=== PATIENT | female | born 1955 | race Asian ===

== ENCOUNTER 2023-03-02 15:30 | Outpatient (REF) | payer OTHER, SELFPAY ==
--- NOTE | ~2023-03-02 | XR_ITS ---
EXAMINATION: XR HIP, LEFT CLINICAL INFORMATION: Left hip pain COMPARISON: None available. TECHNIQUE: Two views of the left hip. AP view of the pelvis FINDINGS: The bones are intact. No fracture. Alignment is anatomic. There is mild narrowing of the superior lateral aspect of the cartilage space of the hips with associated small inferior marginal osteophytes on the left. Subchondral sclerosis is seen in the superior-lateral aspect of each acetabulum. The sacroiliac joints and pubic symphysis are within normal limits. XR/XR hip LT w [id number] IMPRESSION: Mild osteoarthritis of the hips.
--- NOTE | ~2023-03-02 | XR_ITS ---
EXAMINATION: XR KNEE, RIGHT CLINICAL INFORMATION: Right knee pain COMPARISON: None available. TECHNIQUE: Four views of the right knee. FINDINGS: The bones are intact. No fracture or joint effusion. Mild lateral patellar tilt with minimal narrowing of the patellofemoral joint compartment. No abnormal soft tissue calcification. XR/XR knee RT 3V IMPRESSION: Mild lateral patellar tilt with minimal narrowing of the patellofemoral joint compartment.
== END 2023-03-02 15:31 | disposition home or self-care (01) ==
LOC: HO.XRAY 15:30
PROVIDERS: Visit Provider Physical Medicine & Rehabilitation
DX: M25.552 Pain in left hip (principal); M25.561 Pain in right knee
CPT/HCPCS: 73502; 73562

== ENCOUNTER 2023-03-03 08:07 | Outpatient (REF) | payer OTHER, SELFPAY ==
--- NOTE | ~2023-03-03 | MM_ITS ---
EXAMINATION: BONE DENSITOMETRY CLINICAL INDICATION: Osteoporosis. COMPARISON: None (current study represents initial baseline exam). TECHNIQUE: Using a [employer] DXA System (software version: 13.1) manufactured by [employer], dual-energy x-ray absorptiometry was performed of the lumbar spine and left hip. The images are of good technical quality. Summary results are attached. FINDINGS: AP SPINE L1-L4: BMD 0.838 g/cm2, Z-score -1.4, T-score -2.8, osteoporosis. LEFT FEMUR, NECK: BMD 0.866 g/cm2, Z-score 0.1, T-score -1.2, osteopenia. LEFT FEMUR, TOTAL: BMD 0.900 g/cm2, Z-score 0.3, T-score -0.9, normal. IDENTIFIED RISK FACTORS: Menopause. HISTORY OF FRACTURE: None listed. MEDICATIONS: None listed. MM/XR DEXA axial skeleton IMPRESSION: 1. DIAGNOSIS: Osteoporosis based on the lowest T-score value of -2.8 in the lumbar spine applying World Health Organization criteria. 2. 10-YEAR FRACTURE RISK PREDICTION, FRAX: According to the guidelines, FRAX calculation should only be performed on patients in the osteopenia bone density category. Therefore, FRAX was not performed on this patient. 3. Treatment Recommendations: NOF guidelines recommend consideration for treatment in postmenopausal women and men age 50 and older presenting with the following: -A hip or vertebral (clinical or morphometric) fracture. -T-score less than or equal to -2.5 at the femoral neck or spine after appropriate evaluation to exclude secondary causes. -Low bone mass at the hip or spine and a 10-year fracture probability by FRAX of greater than or equal to 3% for hip fracture or greater than or equal to 20% for major osteoporotic fracture based on the [place] adapted WHO algorithm. 4. Other Recommendations: All treatment decisions require clinical judgment and consideration of individual patient factors, including patient preferences, comorbidities, previous drug use, risk factors not captured in the FRAX model (e.g. frailty, falls, vitamin D deficiency, increased bone turnover, interval significant decline in bone density) and possible under or overestimation of fracture risk by FRAX. Additional medical evaluation for secondary cause of low bone mineral density may be appropriate. FUTURE SCAN RECOMMENDATION: People with diagnosed cases of osteoporosis or at high risk for fracture should have regular bone mineral density tests. For patients eligible for Medicare, routine testing is allowed once every 2 years. The testing frequency can be increased to one year for patients who have rapidly progressing disease, those who are receiving or discontinuing medical therapy to restore bone mass, or have additional risk factors.
== END 2023-03-03 08:08 | disposition home or self-care (01) ==
LOC: HO.MAMMO 08:07
PROVIDERS: Visit Provider Nurse Practitioner Adult Health
DX: Z13.820 Encounter for screening for osteoporosis (principal); Z78.0 Asymptomatic menopausal state; M81.0 Age-related osteoporosis without current pathological fracture
CPT/HCPCS: 77080

== ENCOUNTER 2025-03-06 09:37 | Outpatient (REF) | payer OTHER, SELFPAY ==
--- NOTE | ~2025-03-06 | MM_ITS ---
EXAMINATION: DXA BONE DENSITY AXIAL HISTORY: M81.0 AGE RELATED OSTEOPOROSIS TECHNIQUE: [employer] Dual energy absorptiometry (DEXA) of the lumbar spine, total left hip, and femoral neck was performed. COMPARISON: Comparison is made with the prior examination dated 03/03/2023. FINDINGS: The bone mineral density of the lumbar spine is 0.843, corresponding to a T-score of -2.8, and a Z-score of -1.4. This is indicative of osteoporosis. This represents a BMD change of 0.6% compared to the prior exam. This is not statistically significant. The bone mineral density of the left total hip is 0.904, corresponding to a T-score of -0.8, and a Z-score of 0.4. This is indicative of normal bone mineral density. This represents a BMD change of 0.4% compared to the prior exam. This is not statistically significant. The bone mineral density of the left femoral neck is 0.899, corresponding to a T-score of -1.0, and a Z-score of 0.4. This is indicative of normal bone mineral density. This represents a BMD change of 3.8% compared to the prior exam. MM/XR DEXA axial skeleton IMPRESSION: Based on bone mineral density, and according to World Health Organization (WHO) criteria, the diagnosis is consistent with osteoporosis. All bone density values are in grams per centimeter squared (g/cm2). Statistically, 68% of repeat scans fall within 1 SD (+/- 0.010 g/cm2 for AP spine L1-L4) and 1 SD (+/- 0.012 g/cm2 for femur total) FRAX is a trademark of the [employer]'s [employer] Metabolic Bone Disease, a World Health Organization (WHO) Collaborating Center. Electronically signed by: Victor Manuel Maguire MD 03/06/2025 01:31 PM EDT
--- OUTSIDE RECORDS SUMMARY | 2025-03-06 10:33 | XMS_ITS | Data Portability ---
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 Apply by twice a day to AFFECTED AREA 2012 active Not Available Not Available Not Avai lable alendrona te 70 mg tablet TAKE 1 TAB ONCE WEEKLY ON AN EMPTY STOMACH 1ST THING IN THE MORNING WITH 8 OZ. OF WATER REMAIN UP 02/16 completed not taking anymore Not Available Not Available Not Available prochlorp erazine maleate 10 mg tablet 10/11 completed Not Available Not Available Not Available omeprazol e 40 mg capsule,d elayed release TAKE 1 CAPSULE BY MOUTH EVERY DAY 03/10 completed Not Available Not Available Not Available acetamino phen 500 mg tablet TAKE 2 TABLETS 3 TIMES A DAY BY ORAL ROUTE NEEDED. 02/16 completed Not Available Not Available Not Available triamcino lone acetonide 0.1 % topical cream APPLY A THIN LAYER TO THE AFFECTED AREA(S) BY TOPICAL ROUTE 2 TIMES PER DAY 03/15 completed Not Available Not Available Not Available amoxicill in 500 mg tablet TAKE 1 TABLET BY MOUTH EVERY 6 HOURS UNTIL GONE 02/16 completed Not Available Not Available Not Available Vagifem 25 mcg vaginal tablet Insert 1 tablet (25 mcg) by vaginal route qhs x 2 weeks and then 2x week thereaft er 2009 active Not Available Not Available Not Avai lable prednisol one acetate 1 % eye drops,saturnino pension INSTILL 1 DROP INTO BOTH EYES 4 TIMES A DAY 02/16 completed Not Available Not Available Not Available cephalexi n 500 mg capsule TAKE 1 CAPSULE BY MOUTH EVERY 6 HOURS FOR 7 DAYS 03/10 completed Not Available Not Available Not Available ferrous sulfate 325 mg (65 mg iron) tablet 2007 active Take 1.00 tabs daily Not Available Not Available Not Available lisinopri l 10 mg tablet TAKE 1 TABLET BY MOUTH EVERY DAY DIRECTED active Pt states as needed Not Available Not Available Not Available ibuprofen 400 mg tablet TAKE 1 TABLET BY MOUTH THREE TIMES A DAY FOR 5 DAYS 03/20 completed PRN Not Available Not Available Not Available Advair Diskus 250 mcg-50 mcg/dose powder for inhalatio n INHALE 1 PUFF TWICE DAILY 04/25 completed Not Available Not Available Not Available betametha sone dipropion ate 0.05 % topical cream APPLY BY TOPICAL ROUTE TO AFFECTED AREAS TWICE A DAY DIRECTED FOR 2 WEEKS active PRN Not Available Not Available No t Available docusate sodium 100 mg capsule TAKE 1 CAPSULE BY MOUTH EVERY DAY 03/10 completed Not Available Not Available Not Available gabapenti n 300 mg capsule TAKE 1 CAPSULE BY MOUTH AT BEDTIME 03/10 completed Not Available Not Available Not Available hydrocodo ne 5 mg-acetam inophen 500 mg tablet active Not Available Not Available Not Available hydrochlo rothiazid e 25 mg tablet TAKE 1 TABLET EVERY DAY BY ORAL ROUTE IN THE MORNING. 01/01 completed 11/28/24 AG Not taking every day Not Available Not Available Not Available methylpre dnisolone 4 mg tablets in a dose pack Take 1 dose pk by oral route. 02/16 completed Not Available Not Available Not Available doxycycli ne hyclate 20 mg tablet TAKE 1 TABLET BY MOUTH EVERY 12 HOURS 02/16 completed Not Available Not Available Not Available etodolac 500 mg tablet TAKE 1 TABLET BY MOUTH TWICE A DAY active PRN - Currentl y taking once/day 11/28/24 AG Not Available Not Available Not Available clotrimaz ole 1 % topical cream Apply 1 g twice a day by topical route. active Not Available Not Available No t Available naproxen 500 mg tablet TAKE 1 TABLET BY MOUTH TWICE A DAY DIRECTED 06/12 completed Not Available Not Available Not Available fluocinol one 0.025 % topical cream Apply by topical route ance nightly for three weeks, then as needed 06/11 completed Not Available Not Available Not Available ciclopiro x 0.77 % topical cream APPLY TO AFFECTED AREA TWICE A DAY IN THE MORNING AND IN THE EVENING 02/16 completed Not Available Not Available Not Available cyclobenz aprine 5 mg tablet TAKE 1 TABLET BY MOUTH EVERY DAY AT BEDTIME FOR 5 DAYS 03/10 completed Not Available Not Available Not Available Restasis 0.05 % eye drops in a dropperet te INSTILL 1 DROP INTO BOTH EYES TWICE A DAY 03/15 completed Not Available Not Available Not Available omega-3 acid ethyl esters 1 gram capsule 02/16 completed Not Available Not Available Not Available ibandrona te 150 mg tablet TAKE 1 TABLET BY MOUTH ONCE A MONTH 05/06 completed Not Available Not Available Not Available chlorhexi dine gluconate 0.12 % mouthwash FILL CAP(15ML ) SWISH IN MOUTH FOR 30 SECONDS THEN SPIT OUT. USE AFTER BREAKFAS T AND BEFORE BEDTIME 02/16 completed Not Available Not Available Not Available magnesium active Not Available Not Lucy ilable Not Available Vitamin C active Not Available Not Lucy ilable Not Available zinc daily 02/16 completed Not Available Not Available Not Available Fish Oil 02/16 completed not taking 07/30/19- tt Not Available Not Available Not Available Calcium 600 1-2 times daily 02/16 completed Not Available Not Available Not Available Benadryl active qhs Not Available Not Avai lable Not Available Vitamin D active Not Available Not Lucy ilable Not Available Tylenol PRN 02/16 completed Not Available Not Available Not Available coenzyme Q10 10/15 completed prn Not Available Not Available Not Available Vitamin D3 Taking 5000 units daily. 02/16 completed Not Available Not Available Not Available multivita min 02/28 completed Not Available Not Available Not Available sodium fluoride 1.1 %-potassi um nitrate 5 % dental paste USE 2-3X/JULIAN LY, SPIT OUT EXCESS. DO NOT RINSE WITH WATER. NO EATING OR DRINKING FOR 45 MIN AFTER 02/16 completed Not Available Not Available Not Available omega-3 fatty acids-fis h oil 300 mg-1,000 mg capsule TAKE 1 CAPSULE BY MOUTH TWICE A DAY 02/16 completed Not Available Not Available Not Available peg 3350-elec trolytes 236 gram-22.7 4 gram-6.74 gram-5.86 gram solution 10/11 completed Not Available Not Available Not Available Vitamin D3 50 mcg (2,000 unit) tablet TAKE 2 TABLETS BY MOUTH EVERY DAY 02/16 completed Not Available Not Available Not Available Fish Oil 100 mg-160 mg-1,000 mg capsule Take 1 capsule twice a day by oral route for 90 days. 02/16 completed Not Available Not Available Not Available Multi Vitamin active Not Available Not Available Not Available Fluzone Quad (PF) 60 mcg (15 mcg x 4)/0.5 mL IM syringe PHARMACY ADMINIST ERED 09/02 completed Not Available Not Available Not Available Vitals Date Recorded Body height Body mass index (BMI) Body weight Heart rate Systolic blood pressure Diastolic blood pressure Provider Name and Address Organization Details Last Updated DateTime 5 161.29 cm 27.9 kg/m2 16398.7 8 g 64 /min 164 mm[Hg] 97 mm[Hg] Shanae Stephenson LPN [facility] 5 09:29:01 Date Recorded Body height Body mass index (BMI) Body weight Oxygen saturation Oxygen saturation in Arterial blood by Pulse oximetry Heart rate Systolic blood pressure Diastolic blood pressure Provider Name and Address Organization Details Last Updated DateTime 5 161.29 cm 28.1 kg/m2 36670.3 7 g 97 % 97 % 68 /min 130 mm[Hg] 60 mm[Hg] Fox cobb MA [facility] 5 08:25:21 Date Recorded Oxygen saturation Oxygen saturation in Arterial blood by Pulse oximetry Heart rate Body weight Body mass index (BMI) Body height Systolic blood pressure Diastolic blood pressure Provider Name and Address Organization Details Last Updated DateTime 4 99 % 99 % 69 /min 14168.1 9 g 27.7 kg/m2 161.29 cm 139 mm[Hg] 84 mm[Hg] FRANK Nava [facility] 4 14:57:53 Date Recorded Body height Heart rate Oxygen saturation Oxygen saturation in Arterial blood by Pulse oximetry Systolic blood pressure Diastolic blood pressure Provider Name and Address Organization Details Last Updated DateTime 4 161.29 cm 69 /min 97 % 97 % 116 mm[Hg] 70 mm[Hg] Edwin Mora [facility] 4 13:48:42 Date Recorded Body height Heart rate Systolic blood pressure Diastolic blood pressure Provider Name and Address Organization Details Last Updated DateTime 08/13/2024 161.29 cm 92 /min 121 mm[Hg] 75 mm[Hg] Nlela Herman [facility] 08/13/2024 14:01:59 Social History Question Answer Notes LastModified by Organizat ion Details LastModified Time Tobacco Smoking Status Never Smoker 01/01/25 SHERLNY Medina [place] [facility] 01/01/2025 08:22:53 Do You Have An Advance Directive? No Information not available 08/12/2011 Do You Wear A Helmet When Biking? Yes Information not available 02/16/2016 What Is Your Level Of Caffeine Consumption? Occasional Information not available 02/16/2016 How Much Tobacco Do You Chew? None Information not available 12/09/2014 What Type Of Diet Are You Following? REGULAR Information not available 02/16/2016 Which Illicit Or Recreational Drugs Have You Used? Raisa lawson Information not available 09/23/2015 How Many Days In The Past Year Have You Had A Heavy Drinking Consumption (4+ Female, 5+ Male)? 0 Information not available 02/27/2019 Are There Any Guns Present In Your Home? No Information not available 02/16/2016 Live Alone Or With Others? With Others Information not available 06/05/2012 Patient Has Health Care Proxy Signed And In Chart No Proxy Invalid - Agent Cannot Be Witness. 11/28/24 AG Given [email or web address] Information not available 06/05/2012 MOLST Form Signed And In Chart 04/25/2024 2nd Page Of MOLST Is Not Valid-not Signed By Patient [email or web address] Information not available 04/26/2024 Marital Status Is Taras Donohue Information not available 06/05/2012 Mosquito Repellent Used Routinely Yes Information not available 02/16/2016 What Was The Date Of Your Most Recent Tobacco Screening? 01/01/2025 01/01/25 SHERLYN Information not available 01/01/2025 How Many Children Do You Have? 1 Daughter Information not available 06/05/2012 Seat Belts Used Routinely Yes Information not available 02/16/2016 Smoke Alarm In Home Yes Information not available 02/16/2016 How Much Tobacco Do You Smoke? No Information not available 10/15/2019 General Stress Level Low [email or web address] Information not available 07/30/2019 Do You Use Sunscreen Routinely? Yes Information not available 02/16/2016 How Many Years Have You Smoked Tobacco? 0 Information not available 10/15/2019 Sex: Female Functional Status Question Answer Note LastModified by Organizat ion Details LastModified Time Do you use any illicit or recreational drugs? No Information not available 11/28/2024 Do you or have you ever used any other forms of tobacco or nicotine? No Information not available 11/28/2024 What is your level of alcohol consumption? None Information not available 11/28/2024 Do you or have you ever used smokeless tobacco? 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 Never used electronic cigarettes Information not available 10/15/2019 Mental Status None recorded. Family History Relationship Description Onset Age of this Age Resolved Age Notes LastModified by Organization Details LastModified Time Mother Diabetes mellitus previo usly record ed as Diabet es renny Not available 12/29/2015 08:28:39 Notes:Father-heart disease 3 brothers and 1 sister-all healthy sister iwth osteoporisis. Medical History Condition Response eczema Y Gynecological HistoryNo gynecological history recorded. Obstetrics History GPAL:G 0 P 0 0 0 0 Immunizations Vaccine Type Date Status Note Provider Nam e and Address Organization Details Recorded Time Tdap 1 completed Not Available [facility] 10/13/2019 02:26:40 Td(adult) unspecified formulation 2 completed Not Available [facility] 10/29/2020 10:07:09 Influenza, split virus, trivalent, preservative 2 completed Not Available [facility] 10/13/2019 02:18:34 influenza, seasonal, intradermal, preservative free 3 completed Not Available [facility] 10/13/2019 02:26:05 Influenza, split virus, trivalent, PF 4 completed Not Available [facility] 10/13/2019 02:26:06 Influenza, split virus, quadrivalent, PF 5 completed Not Available [facility] 10/13/2019 02:34:15 Influenza, split virus, quadrivalent, PF 7 completed Not Available [facility] 10/13/2019 02:22:05 Influenza, split virus, quadrivalent, PF 8 completed Not Available [facility] 10/13/2019 02:25:34 Influenza, split virus, quadrivalent, PF 9 completed Not Available [facility] 10/13/2019 02:24:34 Td (adult), 5 Lf tetanus toxoid, preservative free, adsorbed 3 completed Dioni Oneal, RMA null, [facility] 02/16/2023 16:22:03 Influenza, split virus, trivalent, preservative 0 completed Not Available [facility] 10/13/2019 02:36:32 Influenza, adjuvanted, trivalent, PF 4 completed Shanae Gladu, APPLICATIONS INTERN null, [facility] 11/28/2024 09:41:15 zoster recombinant 2 completed Shanae Gladu, APPLICATIONS INTERN null, [facility] 11/28/2024 09:41:15 zoster recombinant 2 completed Shanae Gladu, APPLICATIONS INTERN null, [facility] 11/28/2024 09:41:15 Influenza, high-dose, quadrivalent, PF 2 completed [facility], [facility] 09:41:15 Influenza, adjuvanted, quadrivalent, PF 3 completed [facility] Glad[facility], [facility]/28/[facility]24 09:41:15 COVID-19, mRNA, LNP-S, PF, 30 mcg/0.3 mL dose 1 completed [facility] Gladu, [facility] 11/28/[facility]24 09:41:15 COVID-19, mRNA, LNP-S, PF, 30 mcg/0.3 mL dose 1 completed Shanae Gladu, [facility] 11/28/2024 09:41:15 COVID-19, mRNA, LNP-S, PF, 30 mcg/0.3 mL dose 1 completed Shanae Gladu, APPLICATIONS INTERN null, [facility] 11/28/2024 09:41:15 Pneumococcal conjugate PCV20, polysaccharide INH290 conjugate, adjuvant, PF 4 completed Shanae Gladu, APPLICATIONS INTERN null, [facility] 11/28/2024 09:41:15 COVID-19, mRNA, LNP-S, PF, lilly-sucrose, 30 mcg/0.3 mL 4 completed Shanae Gladu, APPLICATIONS INTERN null, [facility] 11/28/2024 09:41:15 COVID-19, mRNA, LNP-S, PF, 50 mcg/0.5 mL 3 completed Shanae Gladu, APPLICATIONS INTERN null, [facility] 11/28/2024 09:41:15 Influenza, split virus, quadrivalent, PF 0 completed Shanae Gladu, APPLICATIONS INTERN null, [facility] 11/28/2024 09:41:15 Influenza, split virus, quadrivalent, PF 1 completed Shanae Gladu, APPLICATIONS INTERN null, [facility] 11/28/2024 09:41:15 Past Encounters Encounter ID Performer Location Encounter Start Date Encounter Closed Date Diagnosis/Indication Diagnosis SNOMED-CT Code Diagnosis ICD10 Code Diagnosis Note [id number] Elza MULTANI, [facility] [place]ICE [address] [place] [address] 02/16/2002 08:09:35 10/16/2008 02:02:29 [id number] [facility] , [address] [id number] 02/23/2002 08:10:39 10/16/2008 02:02:29 [id number] [facility] ULTRASOUND [facility] , [address] [address] 02/23/2002 09:33:50 10/16/2008 02:02:29 [id number] Elza MULTANI, [facility], OFFICE [address] [place] [address] 04/18/2002 08:07:17 10/16/2008 02:02:29 [id number] [facility] - [facility] [address] [facility] [address] [place] [address] 04/18/2002 08:44:34 10/16/2008 02:02:29 [id number] Sonny Hinds MD , [facility], OFFICE [address] [place] [address] 06/12/2002 08:20:51 10/16/2008 02:02:29 [id number] Jaret Cabrera MD , [facility] OFFICE [address] [place] [address] 06/20/2002 08:10:20 10/16/2008 02:02:29 [id number] Teresa RAMIREZ , [facility], OFFICE [address] [place] [address] 04/23/2003 08:26:04 10/16/2008 02:02:29 [id number] [facility] - [facility] [address] [place] [id number] 04/23/2003 00:00:00 10/16/2008 02:02:29 [id number] [facility] , [facility] [address] [place] [address] 04/23/2003 09:12:31 10/16/2008 02:02:29 [id number] Elza MULTANI, [facility], OFFICE [address] [place] [address] 06/17/2003 16:27:37 06/17/2003 18:14:06 [id number] Elza MULTANI, [facility], OFFICE [address] [place] [address] 06/24/2003 16:26:31 06/24/2003 18:30:00 [id number] [facility] - [facility] [address] [place] [address] 06/25/2003 08:12:22 06/25/2003 11:57:34 [id number] Zenon Cervantes, OD Eye Care, [facility] [address] [facility] [place] [address] 07/18/2003 14:54:13 07/18/2003 16:37:42 [id number] [facility] , [facility] [address] [facility] [place] [address] 07/18/2003 15:20:19 07/18/2003 15:33:56 [id number] FP TREATMENT NURSE [facility], [facility], OFFICE [address] [place] [address] 11/07/2003 00:00:00 10/16/2008 02:02:29 [id number] [facility] , [facility], OFFICE [address] [place] [address] 11/07/2003 15:45:36 10/16/2008 02:02:29 [id number] Paulie Hernandez III, MD , [facility], OFFICE [address] [place] [address] 12/24/2003 14:27:20 12/25/2003 09:42:19 [id number] Teresa MULTANI, [facility], OFFICE [address] [place] [id number] 01/15/2004 15:30:33 01/15/2004 17:27:43 [id number] Teresa MULTANI, [facility], OFFICE [address] [place] [address] 09/01/2004 16:10:29 09/01/2004 16:31:56 [id number] Laila Higuera MD FP, [facility], OFFICE [address] [place] [address] 11/05/2004 16:51:49 11/09/2004 08:16:41 [id number] [facility] - [facility] [address] [place] [address] 11/05/2004 00:00:00 10/16/2008 02:02:29 [id number] Teresa MULTANI, [facility], OFFICE [address] [place] [id number] 09/30/2005 08:10:52 09/30/2005 14:53:33 [id number] [facility] - [facility] [address] [place] [address] 09/30/2005 08:57:18 09/30/2005 08:57:40 [id number] Jeremi MULTANI, [facility], OFFICE [address] [place] [address] 10/12/2005 17:22:48 10/13/2005 08:25:11 [id number] [facility] - [facility] [address] [place] [id number] 10/12/2005 00:00:00 10/16/2008 02:02:29 [id number] [facility] , [facility] [address] [place], [place] [address] 10/14/2005 07:22:17 10/14/2005 14:10:29 [id number] Jeremi MULTANI, [facility], OFFICE [address] [place] [address] 11/11/2005 09:06:18 11/11/2005 13:42:36 [id number] Teresa MULTANI, [facility], OFFICE [address] [place] [address] 01/27/2006 07:57:13 01/27/2006 15:18:58 [id number] Teresa MULTANI, [facility] OFFICE [address] [place] [address] 02/25/2006 08:06:40 02/25/2006 09:18:20 [id number] Floyd Phillips , [facility], OFFICE [address] [place] [id number] 04/18/2006 07:58:10 04/18/2006 17:43:16 [id number] [facility] - [address] [place] [address] 04/18/2006 00:00:00 10/16/2008 02:02:29 [id number] Robb Salazar, [facility] OFFICE [address] [place] [address] 05/06/2006 08:03:25 05/09/2006 09:31:00 [id number] [facility] - [address] [place] [address] 05/06/2006 00:00:00 10/16/2008 02:02:29 [id number] [facility] - [address] [place] [address] 05/06/2006 11:53:44 05/06/2006 11:53:59 [id number] EMELIA Simpson, [facility], OFFICE [address] [place] [address] [place] [address] 05/18/2006 08:17:48 05/18/2006 15:11:38 [id number] [facility] - [address] [place] [id number] 05/18/2006 00:00:00 10/16/2008 02:02:29 [id number] EMELIA Simpson, [facility], OFFICE [address] [place] [address] [place] [address] 05/27/2006 10:20:47 05/27/2006 14:12:17 [id number] [facility] - [address] [place] [address] 05/27/2006 00:00:00 10/16/2008 02:02:29 [id number] EMELIA Simpson, [facility] OFFICE [address] [place] [address] 06/01/2006 08:26:16 06/01/2006 10:44:14 [id number] [facility] - [address] [place] [address] 05/01/2006 00:00:00 10/16/2008 02:02:29 [id number] Anita Lopez NP , [facility] OFFICE [address] [place] [address] 08/29/2006 08:24:11 08/29/2006 10:42:34 [id number] Robb Salazar , [facility], OFFICE [address] [place] [place] [id number] 11/01/2006 09:55:04 11/01/2006 13:59:08 [id number] [facility] - [address] [place] [id number] 11/01/2006 00:00:00 10/16/2008 02:02:29 [id number] [facility] , [address] [place] [address] 11/01/2006 09:19:43 11/02/2006 07:23:55 [id number] [facility] - [address] [place] [address] 11/01/2006 11:16:09 11/01/2006 11:16:21 [id number] Teresa RAMIREZ , [facility], OFFICE [address] [place] [address] 1 07/10/2007 09:57:38 10/16/2008 02:02:29 [id number] Elza Jacobs , [facility] [address] [place] [place] [address] 1 10/20/2007 09:31:53 10/16/2008 02:02:29 [id number] [facility] , [address] [place] [address] 1 10/20/2007 11:22:45 10/20/2007 12:19:10 [id number] [facility] - [address] [place] [address] 1 10/20/2007 00:00:00 10/16/2008 02:02:29 [id number] [facility] - [address] [place] [address] 1 10/20/2007 11:14:51 10/20/2007 11:14:59 [id number] [facility] , [address] [place] [address] 1 11/03/2007 10:57:52 11/03/2007 11:10:45 [id number] Tamela MULTANI, [facility] OFFICE [address] [place] [address] 1 01/15/2008 08:06:43 10/16/2008 02:02:29 [id number] [facility] , [address] [address] 01/15/2008 08:51:26 01/15/2008 14:39:19 [id number] Kylie Menard, PT Physical Therapy, [address] [place] [address] 01/18/2008 14:48:19 01/18/2008 14:48:46 [id number] Kylie Menard, PT Physical Therapy, [address] [place] [address] 1 02/05/2008 08:56:02 02/05/2008 08:57:10 [id number] EMELIA Fung, [facility] [place] [address] [place] [address] 1 03/07/2008 07:59:33 10/16/2008 02:02:29 [id number] [facility] - [address] [place] [address] 1 03/07/2008 08:53:12 03/07/2008 08:53:30 [id number] [facility] , [address] [place] [address] 1 03/07/2008 09:21:40 03/07/2008 10:36:46 [id number] [facility] - [address] [place] [address] 1 03/07/2008 11:33:14 03/07/2008 11:33:37 [id number] [facility] - [address] [place] [address] 1 03/07/2008 00:00:00 10/16/2008 02:02:29 [id number] EMELIA Fung, [facility] OFFICE [address] [place] [address] 1 03/14/2008 07:59:45 10/16/2008 02:02:29 [id number] EMELIA Fung, [facility] [address] [place] [address] 1 07/15/2008 08:10:22 10/16/2008 02:02:29 [id number] Jeremi Tejada NP FP, [facility] OFF[facility] [address] [place] [address] 1 01/20/2009 15:54:47 01/22/2009 10:49:22 [id number] [facility] , [facility] [address] [place] [address] 01/20/2009 17:00:43 01/21/2009 15:32:25 [id number] [facility] , [facility] [address] [place] [address] 02/09/2010 12:51:56 02/10/2010 09:30:07 [id number] Jeremi Tejada NP FP, [facility] OFF[facility] [address] [place] [address] 1 02/09/2010 13:45:49 02/09/2010 15:42:47 [id number] [facility]ONE DENSITY Radiology , [facility] [address] [facility] [place] [address] 1 03/02/2010 13:22:31 03/05/2010 13:39:58 [id number] FP TREATMENT NURSE [facility] FP, [facility] OFF[facility] [address] [place] [address] 1 08/17/2010 10:50:51 08/18/2010 08:48:14 [id number] Jeremi Tejada NP FP, [facility] [address] [place] [address] 1 03/01/2011 09:09:12 03/01/2011 14:47:06 [id number] [facility] , [facility] [address] [facility] [place], [place] [address] 03/01/2011 09:51:21 03/02/2011 09:40:48 [id number] Jeremi Tejada NP FP, [facility] OFFICE [address] [place] [address] 1 03/22/2011 09:12:29 03/22/2011 17:12:57 [id number] Paulie Hernandez III, MD FP, [facility] OFFICE [address] [place] [address] 1 02/28/2012 12:14:37 03/01/2012 09:09:43 [id number] Melissa Jasso D.O. [facility], OFFICE [address] [place] [address] 1 06/05/2012 09:39:11 06/05/2012 10:25:54 [id number] Victor Manuel Montanez MD Radiology , [facility] [address] [facility] [place] [address] 1 06/05/2012 11:28:25 06/06/2012 09:34:41 [id number] Markel Samule MD Radiology , [address] [address] 06/12/2012 12:43:46 06/15/2012 12:24:05 [id number] Melissa Jasso D.O. [facility], OFFICE [address] [place] [address] [place] [address] 1 09/25/2012 15:22:52 09/25/2012 15:56:38 [id number] Guido Haley MD Radiology , [address] [address] 12/18/2012 11:09:32 12/19/2012 09:09:01 [id number] Victor Manuel Isaac MD [facility], OFFICE [address] [place] [address] [place] [address] 1 01/01/2013 07:55:42 01/01/2013 11:29:24 [id number] Melissa Jasso D.O. [facility], OFFICE [address] [place] [address] [place] [address] 1 06/11/2013 09:31:26 06/12/2013 07:50:38 Adult health examination [id number] see Risk Assessment and Lifestyle Change Counseling section above HM: [facility] pap 06/07 with 3 yr repeat . Mammo 06/08 with 6 month repeat; scheduled today. Lipids '-wnl; james repeat toay BMD 02/02 with 2 year repeat for osteopenia ; will schedule today Colonoscop y 2005 with 10 year repeat. Tdap 05/06. Flu shot today. Counseling [id number] Screening for osteoporosis [id number] Eruption [id number] eczem a type rash on hands, foreamrs. Little improvemen t with fluocinolo n 0.025% cream. Will increase to betamethas one 0.05% cream applied bid to affected areas. Influenza vaccine needed [id number] Melissa Jasso D.O. [facility], OFFICE [address] [place] [address] 1 07/30/2013 10:31:11 07/30/2013 10:58:42 Eruption [id number] eczema type rash on hands, foreamrs. Little improvemen t with fluocinolo n 0.025% cream. Will increase to betamethas one 0.05% cream applied bid to affected areas. Osteoporosis 70367295 Di scussed results with -2.9 T score in back. Will start taking calcium 600 mg bid. Advised to begin weight bearing exercises. Encouarged yoga. Discussed importance of avoid falls. Will repeat spirometry in 2years. [id number] Melissa Jasso D.O. [facility], OFFICE [address] [place] [address] 1 08/12/2014 07:41:41 08/12/2014 08:14:20 Influenza vaccine needed [id number] 106 Low back pain 271056883 lower back strain with some sciatic involvemen t Sxs improving GIven naproxen 500 mg bid to use if sxs worsen Heat, gentle stretching exercises f/u prn Screening mammography [id number] Anita Lopez NP , [facility] OFF[facility] [address] [place] [address] 1 09/02/2014 07:39:03 09/02/2014 08:23:51 Costal chondritis 65713905 [id number] Melissa Jasso D.O. , [facility] OFFICE [address] [place] [address] 1 12/09/2014 09:41:30 12/09/2014 10:25:18 Screening for malignant neoplasm of cervix 473586119 Postmenopausal state 40044683 Adult heal th examination 798784363 see Risk Assessment and Lifestyle Change Counseling section above . HM: [facility] pap today. Mammo 08/09 with 1 year repeat. Lipids 06/08-wnl. BMD 07/08 with 2 year repeat for osteopenia . Colonoscop y 2005 with 10 year repeat. Tdap 05/06. Flu shot 08/09 Backache 530723561 Napro xen 500 mg bid Advised apply heat, gentle stretching declines PT at this time [id number] Jeremi Tejada NP , [facility] OFFICE [address] [place] [address] 1 06/18/2015 07:47:13 06/18/2015 08:13:40 Hypertriglyceridemia 572154363 Trigs 198 Discussed starting omega fish oil 2000 mg daily increase exercise Low back pain 924458519 LBP persists unclear if declined PT or insurance did not cover will refer to PSS- has seen Dr. bates in past. Influenza vaccine needed [id number] Jeremi Tejada NP FP, [facility], OFFICE [address] [place] [address] 1 09/03/2015 07:50:49 09/03/2015 08:16:58 Osteoporosis 29306097 M81.0 discussed changes in bmd for past 2 years will keep appt with on 09/23 to discuss tx options will have interprete r come with her . [id number] Bruno Bennett MD Endocrino logy, [facility] [address] [place] [address] 09/23/2015 07:57:14 09/23/2015 09:19:04 Osteoporosis 76780628 M81.0 Parking Officer present for visit. Recommend she take Ca 600 mg twice a day (600 mg in am and 600 mg in pm) Take Extra Vitamin D 1000 units daily so that taking approx 2000 units total. Rule out secondary causes of osteoporos is with TSH, Renal panel PTH and Vit D. Will also get spine film to ensure no compressio n fractures given severity of lumbar spine scores. Discussed options for therapy includin) bisphospho nates (fosamax, actonel, boniva, reclast)-s /e osteonecro sis, GI upset and difficulti es. There are both IV and oral forms available in this class. Fosamax, Actonel and Boniva are oral. IV Boniva and IV Reclast are injection. 2)Forteo-s /e osteosarco ma, injection site reaction, shifts in Ca. This is only medication capable of growing new bone. Given severity of T score in spine (-3.7 in a few of the vetebrae) is reasonable option. Monitor CMP while giving q 4 months. 3) estrogen-s /e risk for breast cancer and cardiovasc ular disease but would not recommend given that she has gone through menopause 8 years ago. 4) SERM (Evista)-s /e hot flashes and blood clots. Would not use first line in her at this time as other options would provide greater benefit. 5) Prolia-sim ilar s/e as bisphospho nates, given q 6 months in the office. Renal and magnesium monitored while giving to watch for shifts in Calcium. given translatio n needs- will follow up after testing to review results in office and go over therapies again, answer qeustions and decide therapy as time did not allow further indepth discussion of therapies. Over 1 hour spent in history, phyiscal and beginning to explain her BMD, labs and medication . ADDENDUM: Full report found in ERAD. Spine -3.5 (L1 -3.7, L2 -2.9 L3 -2.3 L4 -3.0) left neck -1.7, right neck -1.7 total mean -1.2 total left -1.0 total right -1.4 [id number] Bruno Bennett MD Endocrino logy, [address] [address] 10/27/2015 07:58:00 10/27/2015 09:17:34 Osteoporosis 15819342 M81.0 Parking Officer present for visit. Cont Ca 600 mg with Vit D 400 IU twice a day (600 mg in am and 600 mg in pm) Take Extra Vitamin D 2000 units daily so that taking approx 3000 units total daily. No secondary causes of osteoporos is with TSH, Renal panel PTH and Vit D all normal. Spine films no compressio n fracture. Jul 2015- Full report found in ERAD. Spine -3.5 (L1 -3.7, L2 -2.9 L3 -2.3 L4 -3.0) left neck -1.7, right neck -1.7 total mean -1.2 total left -1.0 total right -1.4 After discussion pt not sure what she would like to do. She is wanting to avoid injection daily with Forteo if possible. She indicates she is only drinking 2 cups of fluid daily and a cup of soup and may not be getting enough fluid. She feels this may reason for her stomach upset and she is leaning toward monthly oral boniva and working on increasing her fluid intake and seeing if she can tolerate oral medication s. Discussed s/e. Discussed directions to take medication , take on empty stomach in AM with at least 8 oz water and remain upright for atleast an hour before eating or reclining. Decided that will try oral boniva for 2 months. f/u in 2 months to see how tolerating medication . If not able to drink necessary water or tolerate medication then will change to IV form or to prolia. [id number] Bruno Bennett MD Endocrino logy, [address] [place] [address] 12/29/2015 07:52:45 12/29/2015 08:49:56 Osteoporosis 29345464 M81.0 Parking Officer present for visit- Akilah Walker Cont Ca 600 mg with Vit D 400 IU twice a day (600 mg in am and 600 mg in pm) Take Extra Vitamin D 2000 units daily so that taking approx 3000 units total daily. No secondary causes of osteoporos is with TSH, Renal panel PTH and Vit D all normal. Spine films no compressio n fracture. Jul 2015- Full report found in ERAD. Spine -3.5 (L1 -3.7, L2 -2.9 L3 -2.3 L4 -3.0) left neck -1.7, right neck -1.7 total mean -1.2 total left -1.0 total right -1.4 Doing well on boniva 150 mg once monthly with no stomach or GI upset. Reviewed Forteo vs boniva and pt wishing to continue on Boniva. F/u in December 2015 and will order BMD at that time for Jul 2017. Will decide after BMD Jul 2017 if to continue therapy or change to alternate med. Pt knows that if she develops GI upset in the interim she is to call the office and will decide if able to continue therapy. Reviewed directions to take medication , take on empty stomach in AM with at least 8 oz water and remain upright for atleast an hour before eating or reclining. [id number] Jeremi Tejada NP FP, [facility], OFFICE [address] [place] [address] 02/16/2016 09:33:46 02/16/2016 09:37:19 Osteoporosis 89626330 M81.0 on montly Bonivafoll owed by Robb Thacker Adult heal th examination 152830525 Z00.00 HM: [facility] pap 12/09/14 with 3 yr Mammo 10/11 with 1 year repeat. Lipids 06/08-wnl. BMD 08/10 with osteoporos is- seeing Robb Jacinda ness Colonoscop y 2005 with 10 year repeat. Tdap 05/06. Flu shot 08/09 Screening for malignant neoplasm of colon 876977221 Z12.11 Referral for a DIRECT booked colonoscop y. This patient is a healthy ASA Class 1 or 2 patient (only mild systemic disease), or a STABLE, well controlled insulin dependent diabetic. They do not have serious cardiac disease ie ND/angiopl asty within 1 year, symptomati c CHF; renal failure with CKD 4 or 5; take Coumadin, Plavix, Aggrenox, etc; nor take chronic narcotics. [Patients who take chronic narcotics should be referred to [facility] for a propofol procedure due to possible inability to sedate adequately with conscious sedation.] Neck pain 57717789 M54.2 R sided neck paindiscus sed PT- pt declined given exercises and will do at home. Lateral epicondylitis 20 0197868 M77.11 R elbow pain x weeksdiscu ssed PT- pt declinedgi phillip exercises and will do at home.f/u prn [id number] Anita Lopez NP , [facility] OFF[facility] [address] [place] [address] 10/11/2016 08:06:45 10/11/2016 08:28:24 Screening mammography 51860593 Z12.31 Abdominal pain 94930631 R10.9 [id number] Bruno Bennett MD Endocrino logy, [address] [address] 02/28/2017 08:57:11 02/28/2017 09:43:52 Osteoporosis 60375084 M81.0 Parking Officer interpreta lk- state pilot # [id number] Reviewed- Cont Ca 600 mg with Vit D 400 IU twice a day (600 mg in am and 600 mg in pm) Take Extra Vitamin D 2000 units daily so that taking approx 3000 units total daily. No secondary causes of osteoporos is with TSH, Renal panel PTH and Vit D all normal. Spine films no compressio n fracture. Jul 2015- Full report found in ERAD. Spine -3.5 (L1 -3.7, L2 -2.9 L3 -2.3 L4 -3.0) left neck -1.7, right neck -1.7 total mean -1.2 total left -1.0 total right -1.4 Doing well on boniva 150 mg once monthly with no stomach or GI upset. Due for BMD in Jul 2017. Will decide after BMD Jul 2017 if to continue therapy or change to alternate med. Order placed today. Reviewed directions to take medication , take on empty stomach in AM with at least 8 oz water and remain upright for at least an hour before eating or reclining. Pt declined portal, no email. Send written results to her after has BMD. F/u in a year unless BMD indicates need to be seen sooner to change medication . [id number] Melissa MULTANI, [facility], OFFICE [address] [place] [address] 07/11/2017 09:01:16 07/11/2017 09:29:26 Osteoporosis 04655419 M81.0 on ibandronat efollowed by Endo. Adult heal th examination 878947993 Z00.00 see Risk Assessment and Lifestyle Change Counseling section aboveHM: SurePath pap 12/09/14 with 3 yr Mammo 10/12 with 1 year repeat. Lipids 06/08-wnl- will repeat today . BMD 08/10 with osteoporos is- seeing Robb fernandez 10/2016 with 10 year repeat. Tdap 05/06. Flu shot today Active or passive immunization 584950286 Z23 Foot pain 38619885 M79.6 73 bilateral foot paindorsum , proximalwi ll ice 20 mins 3 x day, supportive shoesif pain persists will refer to podiatry [id number] Bruno Bennett MD Endocrino logy, [facility] [address] [place] [address] 04/18/2018 15:47:34 04/18/2018 17:10:54 Osteoporosis 22392168 M81.0 Parking Officer interpreta lk- state pilot # [id number] Reviewed- Cont Ca 600 mg with Vit D 400 IU twice a day (600 mg in am and 600 mg in pm) Take Extra Vitamin D 2000 units daily so that taking approx 3000 units total daily. No secondary causes of osteoporos is with TSH, Renal panel PTH and Vit D all normal. Spine films no compressio n fracture. Jul 2015- Full report found in ERAD. Spine -3.5 (L1 -3.7, L2 -2.9 L3 -2.3 L4 -3.0) left neck -1.7, right neck -1.7 total mean -1.2 total left -1.0 total right -1.29 Sep 2017 BMD improving and will continue on Boniva 150 mg once a month. September 2017. Bone density 10/26/2017 shows spine -2.3 (previousl y -3.5 in 2014) left femoral neck -1.6 (previousl y -1.7 in 2014 Stay on it until you see me again in year. Reviewed s/e of stomach pain, chest pain, reflux disease, throat pain, nausea or vomiting come in sooner and stop medication when the symptoms come until you see me. Reviewed directions to take medication , take on empty stomach in AM with at least 8 oz water and remain upright for at least an hour before eating or reclining. F/u in a year Pain in eye 85536262 H57 .11 no anormality noted on exam today. If symptoms persist then see your eye provider [facility] in [place]. [id number] Melissa Jasso D.O. , [facility], OFFICE [address] [place] [address] 07/26/2018 10:21:12 07/26/2018 10:59:32 Active or passive immunization 947982191 Z23 Screening for malignant neoplasm of cervix 241310562 Z12.4 Osteoporosis 50747636 M8 1.0 on ibandronat efollowed by Endo. Adult heal th examination 993710918 Z00.00 see Risk Assessment and Lifestyle Change Counseling section aboveHM: Pap todayMammo 10/13 with 1 year repeat. Lipids 06/2017-wn l. BMD 09/2017flu shot todayadvis ed new shingles vaccine [id number] Sonny Hinds MD , [facility] OFFICE [address] [place] [address] 01/09/2019 07:46:29 01/09/2019 11:25:51 Chronic constipation 058359800 K59.09 Recommende d over the counter colace. Educate Pt to add fiber into diet. Printed a list of food with high fiber from [employer]. All questions were addressed. Pt understand s and agrees with treatment plan Spasm of back muscles 20 8583481 M62.830 Discussed options of ibuprofen, apply ice, flexeril, and physical therapy. Pt agreed to ibuprofen, ice, and flexeril. Educate Pt the side effect of drowsiness when taking cyclobenza kimberlee and to avoid operating heavy machinery or motor vehicle when taking medication . Pt decline physical therapy. If symptoms do not improve, Pt will consider physical therapy. All questions were addressed. Pt understand s and agrees with treatment plan [id number] Denis Lindsay MD , [facility] OFFICE [address] [place] [address] 02/13/2019 07:48:29 02/13/2019 13:42:07 Pain in pelvis 34198454 R10.2 Informed Pt that urinalysis did not show urinary tract infection. Ordered pelvic ultrasound . Advised Pt to go to ER if symptoms worsens such as nausea/vom iting, fever/chil ls, and vaginal spotting or vaginal bleeding. All questions were addressed. Pt understand s and agrees with treatment plan [id number] Melissa Jasso D.O. , [facility], OFFICE [address] [place] [address] 02/22/2019 08:14:50 02/22/2019 09:12:54 Screening mammography 02256565 Z12.31 Lower abdominal pain 545 16934 R10.30 unclear etiologyPe lvic US was normalpain at groin foldwill check labsdc ibuprofen- start naproxen 500 mg bidrto 1 week [id number] Melissa Jasso D.O. , [facility], OFFICE [address] [place] [address] 02/27/2019 14:54:20 02/27/2019 15:22:41 Lower abdominal pain 14366809 R10.30 Pain of le ft hip joint 8828838863 82986 M25.719 [id number] Fox Lorenzo i, PT Physical Therapy, [facility] [address] [facility] [address] 03/07/2019 08:47:05 03/07/2019 11:04:08 Low back pain 107055770 M54.5 [id number] Fox Lorenzo i, PT Physical Therapy, [facility] [address] [facility] [place] [address] 03/13/2019 16:22:23 03/14/2019 08:04:51 Low back pain 709395145 M54.5 [id number] Melissa Jasso D.O. , [facility], OFFICE [address] [place] [address] 03/20/2019 08:12:16 03/20/2019 10:30:17 Subconjunctival hemorrhage 54180464 H11.31 [id number] Fox Lorenzo i, PT Physical Therapy, [address] [address] 03/23/2019 08:57:55 03/23/2019 10:24:13 Low back pain 352234148 M54.5 [id number] Fox Lorenzo i, PT Physical Therapy, [address] [address] 04/03/2019 14:52:20 04/03/2019 16:34:25 Low back pain 890250750 M54.5 [id number] Roselia Rod MD Endocrino logy, [address] [address] 04/19/2019 09:39:26 04/19/2019 10:48:42 Osteoporosis 27098932 M81.0 -ibandrona te 150 mg by mouth once monthly -no dairy - salmon, sardines, bok dao, kale sometimes -vitamin d 1000units by mouth once daily, to confirm dosing -calcium 600mg by mouth once daily Paresthesia 80230375 R20 .2 Vitamin D deficiency 347 53778 E55.9 [id number] Sonny Hinds MD , [facility], OFFICE [address] [place] [address] 07/12/2019 09:16:09 07/12/2019 09:26:27 Active or passive immunization 687113590 Z23 [id number] Melissa Jasso D.O. , [facility], OFFICE [address] [place] [address] 07/30/2019 09:34:57 07/30/2019 10:12:13 Adult health examination 416692341 Z00.00 see Risk Assessment and Lifestyle Change Counseling section aboveHM: Pap 06/2018Col o- 10/2016Mamm o 10/13 with 1 year repeat.BMD 09/2017 Depression screening 171 243573 Z13.89 5 out of 27depressi on screening tool administer ed, entered into emr, scored and discussed, time greater than 7.5 minutes Osteoporosis 70238987 M8 1.0 on ibandronat efollowed by Endo. Screening mammography 24 406872 Z12.31 Family his tory of diabetes mellitus 469693093 Z83.3 will check below Ptosis of eyelid 3258985 0 H02.409 bilateralw orseningwo uld like repaired- referral to Plastic [id number] LISA Rodriguez , [facility], OFFICE [address] [place] [address] 10/15/2019 07:54:58 10/15/2019 12:12:55 Pain of multiple joints 56953801 M25.50 Suspect this is related to osteoarthr itis, Unlikely caused by gout. Other possible etiology is Raynaud's, however she denies cold or color change in extremitie s. Provided patient with reassuranc e, exam is benign. Recommend ibuprofen for pain relief. Advised patient to avoid touching hot surfaces, or hot water. Recommend wearing socks and comfortabl e shoes with good support. Wearing gloves on her hands. Her osteoarthr itis could likely be aggravated by the cold temperatur es. Call/RTO with any concerns. [id number] Nick Whalen MD , [facility], [address] [place] [address] 03/18/2020 11:37:05 03/19/2020 16:09:26 Sore throat 855403795 J02.[address] s[address] with dry cough and minimal chest tightness. No SOB, no fever, no body aches. Tested neg for Covid on the . Enc stay out of work until sx completely gone. Could be allergies or cold virus but just to be safe. Could get retested - it's up to her. Would still recommend not returning to work until feeling back to baseline and then needs to wear mask and be sure that clients/co workers are also wearing masks. Pt comf with this plan. [id number] Roselia Rod MD Endocrino logy, [facility] [address] [facility] [place] [address] 05/06/2020 08:22:50 05/06/2020 14:52:55 Osteoporosis 60704536 M81.0 -stop ibandronat e 150 mg by mouth once monthly -start alendronat e 70mg by mouth once weekly on an empty stomach first thing in the morning with at least 8 oz of water. Do not eat, drink, or take other medication s or supplement s for at least one-half hour after taking alendronat e. Stay upright (sitting or standing) for at least 30 minutes after taking alendronat e to minimize the risk of reflux -stop alendronat e if trouble swallowing , upset stomach or heartburn -consider repeat bone density in 1 to 2y, 05/16 or 05/17 -no dairy - salmon, sardines, bok dao, kale sometimes -vitamin d 1000units by mouth once daily, to confirm dosing -calcium 600mg by mouth once daily -consider bernard chi or yoga to improve balance Vitamin D deficiency 347 84406 E55.9 [id number] Melissa Furcolo D.O. , [facility] [address] [place] [address] 05/12/2020 10:33:28 05/14/2020 11:30:14 Hand pain 60562364 M79.641 R hand, thumb pain x monthwill get xray and labswill send Naproxen to see if helps with painwill f/u with results [id number] Melissa Furcolo D.O. , [facility] [place], OFFICE [address] [place] [address] 06/12/2020 11:33:18 06/16/2020 16:21:06 Pain of multiple joints 82525955 M25.50 high ANNIKA 1:320 mitoticc/t have hand pain, stiffnessh as upcoming referral to Pain in throat 886694385 R07.0 x 3 monthsneg COVIDdenie s pndwill have her come in office for tent visit [id number] Melissa Furcolo D.O. , [facility] [place] [address]ICE [address] [place] [address] 06/18/2020 09:17:40 06/19/2020 14:51:34 Pain in throat 945669175 R07.0 sore throat x 3 monthsneg strepon PPI with no improvemen tnon-smoke r, no etoh but given persistenc e will send for ENT consult [id number] Shanique Martinez MD Rheumatol [facility] [place], [address] [place] [address] 06/30/2020 07:41:01 06/30/2020 16:20:19 Pain of multiple joints 49746001 M25.50 With positive ANNIKA. History is difficult to get because of the language barrier. Radiograph s showed degenerati ve changes.Wi ll check further labs and reassess.T ylenol 2 tablets bid. [id number] Shanique Martinez MD Rheumatol [facility] [address] [place] [address] 08/11/2020 07:47:48 08/12/2020 07:08:30 Pain of multiple joints 07360105 M25.50 With positive ANNIKA. History is difficult to get because of the language barrier. Radiograph s showed degenerati ve changes. Remaining of serology is negative. Normal inflammato ry markers.Th ere is no evidence of rheumatic autoimmune disease at the time being. Patient to contact us if any change in symptoms. Tylenol 2 tablets bid for pain , as needed. [id number] Roselia Rod MD Endocrino log, [facility] [address] [facility] [place] [address] 08/12/2020 10:49:29 08/13/2020 19:27:39 Osteoporosis 42550261 M81.0 -alendrona te 70mg by mouth once weekly on an empty stomach first thing in the morning with at least 8 oz of water. Do not eat, drink, or take other medication s or supplement s for at least one-half hour after taking alendronat e. Stay upright (sitting or standing) for at least 30 minutes after taking alendronat e to minimize the risk of reflux -stop alendronat e if trouble swallowing , upset stomach or heartburn -consider repeat bone density in 1 to 2y, 05/16 or 05/17 -no dairy - salmon, sardines, bok dao, kale sometimes -calcium 600mg by mouth once daily -consider bernard chi or yoga to improve balance -bone density 1y with labs-follo w up 1y 2 weeks after labs Vitamin D deficiency 347 25936 E55.9 -vitamin d 600units daily by mouth [id number] Melissa Jasso D.OJaime , [facility] [place] [place]ICE [address] [place] [address] 08/15/2020 10:46:50 08/20/2020 10:08:22 Adult health examination 233169515 Z00.00 see Risk Assessment and Lifestyle Change Counseling section aboveHM: Pap 06/2018Col o- 10/2016Mamm o 07/2019 .BMD 09/2017flu 06/2010 Depression screening 171 105219 Z13.89 depression screening tool administer ed, entered into emr, scored and discussed, time greater than 7.5 minutes Counseling 379714381 Z71 .89 Osteoporosis 33206230 M8 1.0 on alendronat etoleratin g wellfollow ed by Endo- seen last week Screening mammography 24 039979 Z12.31 Myalgia/my ositis - multiple 582356033 M79.[address] Zamzam gracia w/u for autoimmune etiologype rsistent pain during the day and worse at night- NSAIDs/APA P not helpingwil l try low dose flexeril qhs Onychomyco sis due to dermatophyte 936894337 B35.1 toenailsdi scussed tx optionwill try topical [id number] Melissa Furcolo D.O. , [facility] [place] [place] [address] [place] [address] 09/02/2020 10:31:47 09/02/2020 11:05:49 Screening mammography 19460822 Z12.31 scheduled Myalgia/my ositis - multiple 442014832 M79.[address] Zamzam gracia w/amaury for autoimmune etiology persistent pain during the day and worse at night- NSAIDs/APA P, flexeril not not helping previously seen by Dr. Bates in 2008 for lbp will refer back to see if affecting leg pain will try gabapentin 300 mg qhs- previously prescribed by Dr. Bates Pain in throat 313879103 R07.0 sore throat persists seen by ENT - started on omeprazole for ? reflux no improvemen t advised to call ENT back and schedule f/u Pain in le ft lower limb 463751757 M79.015 [id number] Melissa Furcolo D.O. [facility], OFFICE [address] [place] [address] 11/07/2020 09:36:20 11/10/2020 17:12:59 Abscess 007803565 L02.91 Suspect infected abscess in groin area Pt reports ~ 1 cm size area, red, swollen, painful x 2 days No evidence of systemic infection Will require OV for exam May require I&D and/or abx depending on exam Pt and daughter understand and agree with plan [id number] Victor Manuel Isaac MD , [facility] OFFICE [address] [place] [address] 11/07/2020 16:05:54 11/10/2020 18:02:17 Acute lymphadenitis of inguinal lymph nodes 6610229276 1250924 L04.3 11/07/2020 edel guerra appears to have a necrotized LN (inguinal superficia l). It lies a good 5- 6 inches medial to the injection site of contrast given for left hip MRI 11/04/2020- Iodinated gadolinium injected by the [facility] radiologis t in the usual manner as documented in proceedure note. There is a grape size superficia l induration lies underneath a 1cm open FT wound. as if a broken blister The subdermal mass is red but appears uninfected . Oddly there is a needle size opening in this subdermal mass, i can see centrally within the window of the wound. + subtle serous ooze present but I am unable to express anything from the opening No marginal or spreading ertythema LN is not tucker tender will treat with keflex refer to gen surgery Nicholas K[facility] who may be familiar with this - likely a complicati on from a radiololog ic proceedure : grape size draining left superficia l inguinal mass -appear to be LN. serous fluid only. appeared 2 days after MRI of her Hip same side with radha injection ordered STAT for next week [id number] Roselia Rod MD Endocrino logy, [facility] [address] [facility] [place] [address] 03/10/2021 10:04:33 03/10/2021 19:37:40 Osteoporosis 55010172 M81.0 -stop alendronat e after 5y of treatment -hope this helps with sore throat over the past year -see primary provider if sore throat continues -if new fracture or worsening bone density in 2y, consider other treatment at that point -no dairy - salmon, sardines, bok dao, kale sometimes -calcium 600mg by mouth once daily -consider bernard chi or yoga to improve balance -bone density 2y with labs Vitamin D deficiency 347 76834 E55.9 -vitamin d 2000units daily by mouth once daily [id number] Denis Lindsay MD , [facility] [place] [address] [place] [address] 04/07/2021 13:20:42 04/08/2021 14:39:46 Allergic rhinitis caused by pollen 47407124 J30.1 Osteoporosis 74234252 M8 1.0 [id number] Melissa Jasso D.O. [facility], OFFICE [address] [place] [address] 11/25/2021 10:17:45 11/25/2021 11:25:52 Adult health examination 191003513 Z00.00 see Risk Assessment and Lifestyle Change Counseling section aboveHM: Pap today- 10/2016Mamm o MD 11/2020 Depression screening 171 636689 Z13.31 neg phq 9mood is gooddepres annika screening tool administer ed, entered into emr, scored and discussed, time greater than 7.5 minutes Screening for alcohol abuse 006580249 Z13.39 neg audit Counseling 864790870 Z71 .89 Osteoporosis 16799476 M8 1.0 on alendronat etoleratin g [facility] ed by Endo- seen last week Iron defic iency anemia 19968396 D50.9 cbc wnl 08/2021 Screening mammography 24 178986 Z12.31 scheduled Screening for malignant neoplasm of cervix 562137051 Z12.4 Tinea pedis 3429859 B35. 3 apply cream bid x 2 weeks Jaw pain 254704100 R68.8 4 suspect r/t clenchingw ill f/u with dentist Pain in lower limb 38300 006 M79.606 notes pain in LE bilat, skin painfulno rashwill see if any relief with tylenol [id number] Melissa Puckettcolo D.O. , [facility] OFFICE [address] [place] [address] 02/16/2023 09:32:02 02/16/2023 10:12:22 Adult health examination 673400152 Z00.00 see Risk Assessment and Lifestyle Change Counseling section aboveHM: Pap 2017- no repeat neededColo - 10/2016 w/ 10 yr repeatMamm o MD 11/2020 Depression screening 171 552640 Z13.31 depression screening tool administer edneg phq 9mood is good Screening for alcohol abuse 677907402 Z13.39 Alcohol use screening tool administer edneg audit Iron defic iency anemia 37853265 D50.9 cbc wnl 08/2021 Osteoporosis 56048088 M8 1.0 was on alendronat e for 5 yrsstopped MD 2020 and showed some improvemen tdue for repeat - prefers [place] with [facility] no longer doing Screening mammography 24 669820 Z12.31 scheduled Active or passive immunization 260548215 Z23 Verruca vulgaris 8273851 3 B07.9 one on each handwill return for treatment Atopic dermatitis 644718 01 L20.9 mostly hands Osteoarthritis of hip 23 0255841 M16.9 followed by PSSjust had injection - helpful [id number] Melissa Furshadia D.O. FP, [facility], OFFICE [address] [place] [address] 03/15/2023 08:11:23 03/15/2023 12:38:12 Advance directive discussed with patient 394122848 Z71.89 Advanced Care Planning 1. Advanced care planning was discussed for more than 15 minutes. 2. Participan ts included patient and they were given an opportunit y to decline discussion . 3. Health Care Proxy was discussed. 4. Patient has not completed Health Care Proxy form. given to take home. 5. Names(s) relationsh ip(s) of Health Care Proxy: , daughter 6. MOLST was discussed. 7. Patient has completed MOLST form. 8. Details of discussion : discussed can revise MOLST at any time 9. Follow up needed: prn Verruca vulgaris 6477928 3 B07.9 one on each handpared downtx with LN 10 sec x 2 [id number] Roselia Rod MD Endocrino logy, [facility] [address] [place] [address] 03/31/2023 11:21:41 04/01/2023 20:15:39 Osteoporosis 47886106 M81.0 -we discussed options: no treatment vs. restart alendronat e -it is difficult to compare bone density over time due to switching machine -suggest repeat a bone density at [facility] in 2y. -off alendronat e after 5y of treatment -see primary provider if sore throat continues -if new fracture or worsening bone density in 2y, consider other treatment at that point -no dairy - salmon, sardines, bok dao, kale sometimes -calcium 600mg by mouth once daily -consider bernard chi or yoga to improve balance Vitamin D deficiency 347 69711 E55.9 -off vitamin d for 6mo-reasse ss this [id number] Jeremi Tejada NP , [facility], OFFICE [address] [place] [address] 04/25/2024 14:40:03 04/26/2024 08:51:14 Adult health examination 775076014 Z00.00 see Risk Assessment and Lifestyle Change Counseling section aboveHM: Pap 2017- no repeat neededColo - 10/2016 w/ 10 yr repeatMamm o MD 11/2020 Depression screening 171 327226 Z13.31 depression screening tool administer ed2/27 phq 9mood is good Screening for alcohol abuse 696986623 Z13.39 Alcohol use screening tool administer edneg audit Osteoporosis 01031760 M8 1.0 was on alendronat e for 5 yrsstopped MD [address] rod- given different machine advised repeat 2 yrsno tx presentlyc /w vitamin D Screening mammography 24 865856 Z12.31 scheduled Bilateral lower limb edema 986097107 R60.0 bilat edema intermitte nt x monthbp slightly elevatedwi ll start hctz 25 mg - reviewed possible side effectf/u 4 weeks with labs Jaw pain 323042781 R68.8 4 bilat lower mandible pain, pinching sensation x monthsinte rmittent drooling - pt unawareden ies dysphagias een by Dentist- does not feel r/t teethwill refer to ENT Mixed hyperlipidemia 267 022861 E78.2 02/2023 LDL 173, HDL 73will repeat [id number] Victor Manuel Isaac MD , [facility] [address] [place] [address] 05/30/2024 13:05:56 05/30/2024 14:14:31 Benign essential hypertension 7013560 I10 BP at goal < 130/80doin g well with hctzc/w 25 mgbmp utd wnlf/u 6 mos Atopic dermatitis 838342 01 L20.9 mostly handstx with betamethas one 2x day for 2 weeksalso advised aquaphorf/ u prn Foot pain 01424669 M79.6 73 bilateral foot paindorsum , proximalwi ll ice 20 mins 3 x day, supportive shoespain persists- referral to Podiatry [id number] Megan Renee MD Podiatry, [facility] [address] [place] [address] 08/13/2024 13:50:07 08/13/2024 14:38:30 Metatarsalgia 89568368 M77.40 Acquired c avus deformity of foot 18253201 M21.6X9 [id number] Victor Manuel Isaac MD , [facility] OFFICE [address] [place] [address] 11/28/2024 09:04:28 11/28/2024 13:15:57 Immunization education 890381064 Z71.85 Flu, Pneumonia, Shingles Benign ess ential hypertension 4961061 I10 dx 4BP not at goal < 130/80not taking hctz regularly d/t increased urinationw ill start lisinopril 10 mg - reviewed possible sidecan use hctz 25 mg prn for lower swellingov 4 weeks- labs in 4 week Verruca vulgaris 7630491 3 B07.9 L handprevio usly tx with LNwill do at next visit 4 weeks Bilateral lower limb edema 508920952 R60.0 bilat edema intermitte nthctz 25 mg is helpful- takes prn Articular cartilage disorder of hip 251585492 M24.159 known tear of L labrumhad [facility]- no improvemen twill refer to Ortho for evaluation Osteoporosis 29220123 M8 1.0 was on alendronat e for 5 yrsstopped [address] rod- given different machine advised repeat 2 yrsno tx presentlyc /w vitamin D [id number] Victor Manuel Isaac MD , [facility] OFFICE [address] [place] [address] 01/01/2025 08:04:23 01/01/2025 09:21:31 Benign essential hypertension 1227023 I10 dx P at goal < 130/80star lenin on lisinopril last visit but only taking prnreviewe d with her that is not how it works best, should be taken dailyunder stands the risk of not treating elevated blood pressureca n use hctz 25 mg prn for lower swellingbm p utd Hand wart 849536336 B07. 9 L hand , 3rdtx with LNf/u prn Osteoporosis 03246188 M8 1.0 was on alendronat e for 5 yrsstopped [address] rod- given different machine advised repeat 2 yrsno tx presentlyl ast vitamin D 30c/w vitamin D - has not been taking daily but will restart Health Concerns Section Related Observation LastModified by Organization Detai ls LastModified Time None Recorded Concern Status LastModified by Organization Details LastModified Time None Recorded Advance Directives Directive N: Payers Encounter Date Sequence Insurance Name Policy Number Policy Stallworth Covered Member ID Stallworth Member ID Guarantor Name 04/25/2024 1 [facility] - NAVIGATOR (POS) [id number] Erick Chaparrita Donohue [id number] 01 [id number] Erick Cheatham Mongolian 05/30/2024 1 [facility] (POS) Erick Cheatham Mongolian [id number] Erick Cheatham Mongolian 08/13/2024 1 [facility] (POS) Erick Chaparrita Donohue [id number] Erick Chaparrita Donohue 11/28/2024 1 [facility] (POS) Erick Cheatham Mongolian [id number] Erick Cheatham Mongolian 01/01/2025 1 [facility] (POS) Erick Cheatham Mongolian [id number] Ok Chaparrita Mongolian Notes Date Note Type Note Provider Name and Address Organization Details Recorded Time 04/25/2024 text/html Risk Assessment and Lifestyle Change Counseling (Medicare)Reported bypatient.Coronary Artery Disease Risk Assessment:Family History of Coronary Artery Disease; No personal history of diabetes; No history of peripheral vascular disease, AAA, or carotid disease; No personal history of coronary artery disease Breast Cancer Risk Assessment:No family history of breast cancer; No history of breast cancer or dcis Colon Cancer Risk Assessment:No family history of pre cancerous colon polyps or cancer Lung Cancer Risk Assessment:Never smoked; No asbestos exposure Fracture Risk Assessment:No unexplained fracture; No use of corticosteroids; No anti-seizure medication; No chronic use of proton pump inhibitors Cognitive/Behavioral Risk Assessment:No personal history of mental illness; No family history of mental illness Diet:Counseled about appropriate portion size; Counseled about the importance of maintaining a positive calcium balance and taking 1000 iu Vitamin D daily.; Discussed the value of a Mediterranean diet , and eating more fruits and vegetables Exercise counseling:Discussed the importance of daily physical activity; Discussed the importance of weight bearing exercise Safety:An audit alcohol screening was performed and scored. Patient was asked about alcohol use. Advised about risks of alcohol. Personal risk was assessed. Patient agreed to plan and given information about available resources if needed. Discussion including screening and scoring greater than 7.5 minutes..Risk Assessment and Lifestyle Change Counseling 50-64Reported bypatient.Coronary Artery Disease Risk Assessment:No Family history of coronary artery disease; No personal history of diabetes Breast Cancer Risk Assessment:No history of breast cancer or dcis Lung Cancer Risk Assessment:Never smoked; No asbestos exposure Fracture Risk Assessment:No unexplained fracture Cognitive/Behavioral Risk Assessment:No personal history of mental illness Diet:Counseled about eating a diet low in trans and saturated fats and high in fiber, fruits and vegetables; Counseled about appropriate calcium intake and good dietary sources of calcium.; Counseled about the importance of maintaining a positive calcium balance and taking 1000 iu Vitamin D daily. Exercise counseling:Discussed the importance of daily physical activity; Discussed the importance of weight bearing exercise Safety:Counseled about home safety including use of smoke detectors, CO detectors, keeping home water temperature less than 120 Jeremi Tejada NP [address] [place], [address], [facility] [place], [place] 04/25/2024 21:05:43 05/30/2024 text/html here for f/u on edema, bp, labsdoing well with hctz- toleratingbp at goal todayle swelling better still had foot pain- top of foothands/fingers itchy, painful Jeremi Tejada NP [address] [place], [address], [facility] [place], [place] 05/30/2024 14:03:09 08/13/2024 text/html Patient presents to the office complaining of pain in both of her feet. Patient states she has been experiencing pain for several months which seems to increase with increased time on her feet. Fox Neal DPM [address] [place], [address], [facility] [place], [place] 08/13/2024 14:28:49 11/28/2024 text/html swelling in legs - the same- uses hctz prn- makes her pee morebody aches, ? inflammationlegs get hot -no rednessother joints not red or warmstingsL hip continues to be pain- known labral tear- saw PSS- had injections. Patient presents for follow-up of their hypertension.Updates from last visit: not taking bpHome blood pressures: not at goalnot takingTaking medications daily as prescribed: noSide effects from medications: yes increased urinationLow salt diet: yesRegular Exercise: noCaffeine intake: noAlcohol consumption: noTobacco use: noDaily stress level: min Denies any new shortness of breath, cough, dizziness, chest pain, nausea, vomiting, leg swelling or weakness. An independent historian contributed to the patient's information for this visit: no.Patient is able to manage his medications Jeremi Tejada NP [address] [place], [address], [facility] [place], [place] 11/28/2024 10:02:30 01/01/2025 text/html 1 month f/u on b pnot taking any medicationall meds/supplements upset her stomach so takes occasionallybp good todayfeeling wellneeds wart treated on L hand Jeremi Tejada NP [address] [place], [address], [facility] [place], [place] 01/01/2025 08:51:11 OBGyn Episode No OBEpisode recorded.
== END 2025-03-06 09:38 | disposition home or self-care (01) ==
LOC: HO.MAMMO 09:37
PROVIDERS: PCP Nurse Practitioner Adult Health; Visit Provider Nurse Practitioner Adult Health
DX: M81.0 Age-related osteoporosis without current pathological fracture (principal)
CPT/HCPCS: 77080

== ENCOUNTER → 2025-03-06 10:00 | Outpatient (BNV) | payer OTHER, SELFPAY | PROVIDERS: PCP Nurse Practitioner Adult Health; Visit Provider Radiology Diagnostic Radiology | DX: E28.39 Other primary ovarian failure (principal) | CPT/HCPCS: 77080 ==